=== PATIENT | male | born 1965 | race Caucasian/White ===

== ENCOUNTER 2017-03-21 14:00 | Emergency (ER) | payer MEDICAID ==
[~2017-03-21] VITALS: Ht 185.4 cm; Wt 61.2 kg
--- NOTE | 2017-03-21 14:25 | [facility]gent [facility] Report ---
History of Present Issue Date/Time Seen by Provider 03/21/17 1419 Visit Reason Pt arrived:Walked Presenting Problem:SOA, COUGH, CONGESTION Location if Accident: Onset of symptoms date/time:/ or onset unknown for:MEDICAL HX UNKNOWN Have you (or family members/close friends) recently traveled outside the [place]? N If Yes, where/when: Have you had exposure to infectious disease within the past month? TB? Other? Specify: Patient states that he has not been feeling well for several days States that he has had cough and congestion, stuffy nose and sore throat State that he gets to coughing and feels like he cant catch his breath States that he has been using nebulizer for last few days and that has helped some. State that his family came by today and wanted him to come in and get checked out ALLERGIES Coded Allergies: Penicillins (Mild, 03/21/17) diphenhydramine (From BENADRYL) (Mild, 03/21/17) morphine (Mild, 03/21/17) Home Medications Reported Medications Ibuprofen (MOTRIN 800MG (generic) Tablet) 800 MG PO TIDP PRN PAIN #120 Alprazolam (Xanax 1MG) 1 MG PO BID #60 Gabapentin (Gabapentin 800MG) 800 MG PO Q8 #90 History Medical History General CAD? No Angina: No OR: No Hypertension? No Hyperlipidemia? No CHF? No DVT? No PE? No COPD? No Asthma? No Anemia? No GERD? No Gastric ulcers? No GI Bleed? No Hernia? No Thyroid Problems? No Hypothyroidism? No CVA? No Seizures? Yes Diabetes? No UTI? No Stones? No BPH? No GB Disease: No Nephritic Syndrome? No Asplenia? No Hepatitis? No Sickle Cell Disease? No Arthritis? Yes Migraines? No Cataracts? No Glaucoma? No MRSA? No HIV? No TB? No Anxiety? No Depression? No Cancer? 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 Respiratory cough, shortness of breath Physical Exam Vital Signs Vital Signs Date Time Temp Pulse Resp B/P Pulse O2 O2 Flow FiO2 Ox Delivery Rate 03/21 1415 98.3 106 16 108/80 97 General Appearance Patient appears ill sitting on exam table Ear, Nose, Throat sinus pain/drainage, nasal congestion, Throat red, irritated. drainage noted Respiratory Status Yes: trachea midline, chest symmetrical, non tender chest. No: respiratory distress. Lung Sounds bilateral: normal breath sounds. Cardiovascular normal exam Neurologic alert, normal exam, oriented x 3 Medical Decision Making LABS/Meds/Orders Pt receiving controlled substance in ED? No Results/Orders Orders Procedure Date/time Status CHEST(2 VIEWS-NOT PORTABLE) 03/21 1417 Active XRAY/CT/US XRAY/CT/US XRAY chest XR interpretation by discussed w/radiologist Xray Results no infiltrates Departure Departure Time of Disposition 1459 Disposition DC Home or Self Care(routine) Clinical Impression Primary Impression: Upper respiratory infection Qualifiers: URI type: unspecified URI Qualified Code: J06.9 - Acute upper respiratory infection, unspecified Condition STABLE Referrals Neo LOMBARDO,Herbert Galicia (Family): 2 Days-Call Office Patient Instructions DI for Cough -- Adult, Guaifenesin, Sore Throat Additional Instructions * Monitor Temp. Tylenol and/or Ibuprofen as needed. ER if fever is no less than 101 despite alternating Tylenol and Ibuprofen * Encourage fluids, water, Gatorade, powerade, pedialyte if infant/toddler/or child * Warm salt water gargles for throat irritation *Warm fluids *Sore throat lozenges *Sleep elevated *humidifier or vaporizer Follow up IMMEDIATELY for new or worsening of symptoms OR no noticeable improvement over the next 48-72 hours. 911 immediately for any life threatening symptoms such as chest pain or difficulty breathing Follow up with family doctor or ER if symtoms worsen Discharge Counseling Counseled pt/family regarding diagnosis, medications/RX, home care, follow up needs Prescriptions Current Visit Scripts Azithromycin (Zithromycin (Z-AREN) 250MG Tab) 250 MG PO DAILY #6 TAB TAKE TWO (2) TABLETS ON DAY 1, THEN ONE (1) TABLET DAY #2 THRU #5 Benzonatate (Tessalon Perle) 100 MG PO TID #15 SGL Methylprednisolone (Medrol Dose Aren) 4 MG PO UD #1 AREN TAKE DIRECTED ON PACKAGING Albuterol (Albuterol-Hfa Inhaler) 2 PUFFS IH Q4-6HRS PRN soa #1 INH Ref 2 at 8932
--- NOTE | 2017-03-21 14:44 | RADIOLOGY REPORT PS360 ---
CHEST(2 VIEWS-NOT PORTABLE) COMPARISON: Portable upright chest 11/01/2014 HISTORY: Cough, shortness of breath TECHNIQUE: PA and lateral chest FINDINGS: Mild to moderate emphysematous changes noted with hyperexpansion of lung ferrell and flattening of the hemidiaphragms. There is no infiltrate. There is mild and likely post inflammatory pleural and parenchymal scarring right apex. I see no acute infiltrate. Cardiac size is normal and the vascularity is normal. IMPRESSION: Moderate COPD, right apical pleural and parenchymal scarring, doubt acute chest pathology
[2017-03-21 15:04] VITALS: BP 108/80
--- OUTSIDE RECORDS SUMMARY | 2017-03-31 03:40 | External Medical Summary Rpt | CCD ---
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 MEDICAL KENNY CIAL W/O SERV CONTRAST FOUNDATIO MATERIAL N AMB A0431 AIR AIR SERVICE 4 METHODS METHODS CONVNTION [facility] AIR SRVC TRANSPORT [address] RADIOLOGI 41027 [place] NICKELS C 4 MEDICAL KENNY EXAMINATI SERV ON CHEST FOUNDATIO SINGLE N VIEW FRONTAL GROUND A0425 [facility] MILEAGE 4 AMBULANCE AMBULANCE [place] [address] [place] HEAD/BRAI 4 MEDICAL KENNY N W/[place] [address] [place] TRUE [place] THORACIC 4 MEDICAL SPINE W/O SERV CONTRAST FOUNDATIO MATERIAL N RADIOLOGI 30038 [place] NICKEL[place] C 4 MEDICAL KENNY EXAMINATI SERV ON KNEE 3 FOUNDATIO VIEWS N AMBULANCE A0429 [facility] SERVICE 4 AMBULANCE AMBULANCE BLS SERVICE SERVICE EMERGENCY TRANSPORT RADEX 87364 [place] SHOULDER 4 MEDICAL KENNY COMPLETE SERV MINIMUM [address] [place] [address] [place] TRUE [place] ABDOMEN & 4 MEDICAL PELVIS SERV W/CONTRAS FOUNDATIO T N MATERIAL RADIOLOGI 16448 [place] C 4 MEDICAL MAME EXAMINATI IMAGING ON CHEST ASS SINGLE VIEW FRONTAL CT THORAX 25384 [place] CLAUDIA[place] 4 MEDICAL MAME W/CONTRAS IMAGING T ASS MATERIAL RADIOLOGI 03480 [facility] C 4 [place] GAL EXAMINATI ORTHOPAED ON KNEE [address] THORAX 70289 [place] W/O 4 MEDICAL MAME CONTRAST IMAGING MATERIAL ASS PROSTHETI L8400 SHIL[facility] Lackey SHEATH 4 ORTHOPEDI ORTHOPEDI BELOW CS CS KNEE EACH RADIOLOGI 80447 [place] D MIREILLE D C EXAM 4 CHEST 2 VIEWS FRONTAL&L ATERAL RADIOLOGI 70118 [facility] 4 Y Y [facility] ON KNEE 1/2 VIEWS ADDITION L5620 [facility]ILPA MASSEY LOWER 4 ORTHOPEDI ORTHOPEDI EXTREMITY CS CS TEST SOCKET BELOW KNEE ADDITION L5629 [facility] MASSEY LOWER 4 ORTHOPEDI ORTHOPEDI EXTREM CS CS BELOW KNEE ACRYLIC SOCKET ADD L5940 [facility] MASSEY ENDOSKEL 4 ORTHOPEDI ORTHOPEDI SYSTEM CS CS BELW KNEE ULTRA-LGH T MATL BELW KNEE L5301 [facility] MASSEY MOLD 4 ORTHOPEDI ORTHOPEDI SOCKT CS CS GREEN SACH FT ENDOSKEL SYS ADD LW L5673 [facility] MASSEY EXT CSTM 4 ORTHOPEDI ORTHOPEDI MOLD/PRFA CS CS B FOR USE W/LOCK MECH ADD L5910 [facility] MASSEY ENDOSKEL 4 ORTHOPEDI ORTHOPEDI SYSTEM CS CS BELOW KNEE ALIGNABLE SYSTEM ALL LOW L5986 [facility]PA MASSEY EXTREM 4 ORTHOPEDI ORTHOPEDI PROSTH CS CS MULTI-AXI AL ROTATION UNIT ADDITION L5637 [facility] MASSEY LOWER 4 ORTHOPEDI ORTHOPEDI EXTREMITY CS CS BELOW KNEE TOTAL CNTC ADD LW L5671 [facility]PA MASSEY EXTRM 4 ORTHOPEDI ORTHOPEDI BELW/ABVE CS CS KNEE SUSP LOCK [facility] PROSTHETI L8400 SHILPA SHILPA C SHEATH 4 ORTHOPEDI ORTHOPEDI BELOW CS CS KNEE EACH ALL LW L5987 [facility]PA MASSEY XTRM 4 ORTHOPEDI ORTHOPEDI PRSTH CS CS SHNK FT SYS W/VRTCL LOAD PYLN PROSTHETI L8470 SHILPA SHILPA C SOCK 4 ORTHOPEDI ORTHOPEDI SINGLE CS CS PLY FITTING BELOW KNEE EA RADIOLOGI 84085 [facility] SHAW C EXAM 4 [facility] CHEST 2 INC INC VIEWS FRONTAL&L ATERAL Encounters Encounter Start End Date Code Location Performer Type Date EMERGENCY 49627 [facility] 7 7 EMERGENCY DEPARTMEN T VISIT PHYSICIAN MODERATE S SEVERITY OFFICE 35094 [facility] CASTRO 5 5 PHYSICIAN EDU T VISIT S GROUP [address] DEPT 5 5 PHYSICIAN EDU VISIT S, PLLC HIGH SEVERITY& THREAT FUNCJ OFFICE 20524 LISSA WARD OUTPATIEN 5 5 MEDICAL T VISIT SERV 10 FOUNDATIO MINUTES [facility] - 5 5 [facility] OUTPATIEN INC T OFFICE 40733 [facility] OUTPATI[facility] 5 5 PHYSICIAN EDU T VISIT S GROUP 15 MINUTES [facility] - 5 5 [facility] OUTPATIEN INC T OFFICE 30115 LARUEL HOWELLOmar BUX ANJ OUTPATIEN 5 5 MD Brush [facility] OFFICE 18434 [facility] OUTPATIEN 5 5 [facility] T VISIT INC 10 MINUTES [facility]OSP[facility] - 5 5 [facility] OUTPATIEN INC T OFFICE 05995 [facility] OUTPATIEN 5 5 PHYSICIAN EDU T VISIT S GROUP 10 MINUTES [facility]ERIA - 5 5 [facility] OUTPATIEN INC T EMERGENCY 26299 [facility] 5 5 [facility] DEPARTMEN INC T VISIT LOW/MODER SEVERITY [facility] - 5 5 [facility] OUTPATIEN INC T OFFICE 75326 [facility] 4 4 Y T VISIT 5 [facility] - 4 4 [facility] T OFFICE 86516 LISSA PERKINS OUTPATIEN 4 4 MEDICAL T VISIT SERV 10 FOUNDATIO MINUTES N OFFICE 70657 [facility] 4 4 Y T VISIT [facility] T OFFICE 40472 [facility] OUTPATIEN 4 4 PHYSICIAN EDU T VISIT S GROUP 15 MINUTES EMERGENCY 21424 LISSA BURLESON DEPT 4 4 MEDICAL VISIT SERV HIGH FOUNDATIO SEVERITY& N THREAT FUN OFFICE 89508 [facility] OUTPATIEN 4 4 PHYSICIAN EDU T VISIT S GROUP 10 MINUTES EMERGENCY 89115 LISSA WALLACESON 4 4 MEDICAL MAT DEPARTMEN SERV T VISIT FOUNDATIO HIGH/URGE N NT SEVERITY EMERGENCY 29725 [facility] DEPT 4 4 LUDA VISIT EMERGENCY HIGH PHYS SEVERITY& THREAT FUNCJ OFFICE 78566 [facility] CONSULTAT 4 4 [place] GAL ION ORTHOPAED NEW/ESTAB ICS PLC PATIENT 40 MIN [facility]OSP[facility] - 4 4 [facility] 4 [facility] 4 4 [facility] T OFFICE 38401 [facility] 4 MAME MAME T VISIT 15 MINUTES OFFICE 95858 [facility] OFF[facility] 09321 MOGHADAMI MOGHADAMI [facility] 4 4 AN MORENITA AN MORENITA T VISIT 15 MINUTES [facility]231 [facility] 4 Y T VISIT 5 [facility] 13568 PRITESH RM PRITESH RM OUTPATI 4 4 T VISIT 15 MINUTES Inpatient INDIO Parry MD (IN) 3 12:37 3 14:25 [facility] Emergency ALEX REBOLLAR (ER) 3 12:50 3 13:30 [place] A
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
--- OUTSIDE RECORDS SUMMARY | 2017-03-31 03:42 | External Medical Summary Rpt | CCD ---
Author Author , COURT BURNS Address Unknown Phone [email or web address] Immunization Name Date Rout CVX Reac Dose Comm Prov Is Faci e tion ent ider Refu lity Give sed n Tdap 11-1 115 0.5 Hist [facility] No [facility] , 0-20 mL oric 1 1 Adso 14 al rbed Info rmat ion - Sour ce Unsp ecif ied
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
--- OUTSIDE RECORDS SUMMARY | 2017-03-31 03:42 | External Medical Summary Rpt | CCD ---
Author Author , COURT [facility]URNS Address Unknown Phone .[employer] Immunization Name Date Rout CVX Reac Dose Comm Prov Is Faci e tion ent ider Refu lity Give sed n Tdap 11-1 115 0.5 Hist [facility] No [facility] , 0-20 mL oric 1 1 Adso 14 al rbed Info rmat ion - Sour ce Unsp ecif ied
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
== END 2017-03-21 15:04 | disposition home or self-care (01) ==
LOC: UTC 14:00
DX: J06.9 Acute upper respiratory infection, unspecified (principal); Z88.0 Allergy status to penicillin; F17.210 Nicotine dependence, cigarettes, uncomplicated

== ENCOUNTER → 2017-04-25 | Outpatient (CLI) | payer MEDICAID ==
[~2017-04-25] MED LIST: ALBUTEROL-200 PUFFS/ IH; AMITRIPTYLINE 225 MG PO; BACTROBAN2% TP; GABAPENTIN800 MG PO; HYDROCODON-ACETAMINO PO; IBU800 MG PO; LORTAB 7.5/3251 TAB PO; MEDROL 4MG. DOSE4 MG PO; NEURONTIN 300M300 MG PO; NOMEDS; PRILOSEC20 MG PO; TESSALON PERLE100 M1 PO; XANAX 1MG TABLET1 MG PO; ZITHROMAX Z PA250 MG PO
[2017-04-25 16:04] LABS: HEMOGLOBIN 14.1 g/dL (14.1-18.0); LYMPH % 30.4 % (10-50)
[2017-04-25 17:28] LABS: BUN 16 mg/dL (7-18)
[2017-04-25 17:45] LABS: GFR (ESTIMATED) 103 ML/MIN (>60)
[2017-04-25 22:07] LABS: AMPHETAMINES/METAMPHETAMINES NEGATIVE ng/mL (<1000)
[2017-04-27 08:55] LABS: HBsAg Screen Negative (Negative); Hep A Ab, IgM Negative (Negative); Hep B Core Ab, IgM Negative (Negative); Hep C Virus Ab >11.0 (0.0-0.9)
== END ==
LOC: LAB 15:45
PROVIDERS: Emergency Medicine
DX: R53.83 Other fatigue (principal); G62.9 Polyneuropathy, unspecified; Z79.899 Other long term (current) drug therapy

== ENCOUNTER → 2017-05-24 | Outpatient (CLI) | payer MEDICAID ==
[2017-05-24 13:35] LABS: AMPHETAMINES/METAMPHETAMINES NEGATIVE ng/mL (<1000)
== END ==
LOC: LAB 12:26
PROVIDERS: Emergency Medicine
DX: Z79.899 Other long term (current) drug therapy (principal)